=== PATIENT | male | born 1965 | race Caucasian/White ===

== ENCOUNTER 2020-06-27 23:11 | Inpatient (IN) | payer OTHER ==
[~2020-06-27] VITALS: Ht 172.7 cm; Wt 91.2 kg
[2020-06-27] MEDS ORDERED: MAGNESIUM SULFATE 2 GM, MVI, ADULT NO.1 WITH VIT K 10 ML, THIAMINE 100 MG, FOLIC ACID 1... IV ONE ×5 (23:30)
[2020-06-27 23:53] LABS: HEMATOCRIT 48.6 % (41-53); HEMOGLOBIN 16.6 g/dL (13.5-17.5); MEAN CORPUSCULAR HEMOGLOBIN 35.7 pg (26.0-34.0); MEAN CORPUSCULAR HGB CONC 34.2 G/dL (31.0-37.0); MEAN CORPUSCULAR VOLUME 104 fL (80-100); RED BLOOD CELL COUNT(AUTO) 4.65 MIL/uL (4.50-5.90); RED CELL DISTRIBUTION WIDTH 13.4 % (11.5-14.5)
[2020-06-28] VITALS (15 sets, daily range): BP systolic 109–132; BP diastolic 45–84
[2020-06-28 00:08] LABS: ALANINE AMINOTRANSFERASE 122 U/L (12-78); ALKALINE PHOSPHATASE 110 U/L (46-116); ANION GAP 27 mmol/L (8-16); ASPARTATE AMINOTRANSFERASE 271 U/L (15-37); BILIRUBIN,TOTAL 3.4 mg/dL (0.1-1.0); CARBON DIOXIDE 17 mmol/L (22-29); CHLORIDE 92 mmol/L (98-107); CREATININE 3.63 mg/dL (0.60-1.30); GLOMERULAR FILTR. RATE CALC 17 mL/min (>60); GLUCOSE,RANDOM 166 mg/dL (70-110); POTASSIUM 3.7 mmol/L (3.5-5.1); SODIUM SERUM 136 mmol/L (136-145); TOTAL PROTEIN, SERUM 7.6 g/dL (6.4-8.2); UREA NITROGEN, BLOOD 58 mg/dL (7-18)
[2020-06-28 00:10] LABS: PLATELET COUNT (AUTO) 149 K/uL (150-450)
[2020-06-28 00:13] LABS: ACETAMINOPHEN < 2 mcg/mL (10-30); CALCIUM, TOTAL 14.5 mg/dL (8.8-10.5)
[2020-06-28 00:15] LABS: COVID AG,FIA SOURCE NASOPHARYNGEAL
[2020-06-28 00:17] LABS: SALICYLATE 0.3 mg/dL (2.8-20.0)
[2020-06-28 00:20] LABS: BAND NEUTROPHILS % (MANUAL) 25 % (0-5); LYMPHOCYTES % (MANUAL) 8 % (22-44); MONOCYTES % (MANUAL) 7 % (2-9); MYELOCYTES % 1 % (0-0); SEGMENTED NEUTROPHILS % 59 % (40-70)
[2020-06-28 00:21] LABS: PLATELET MORPHOLOGY COMMENT GIANT PLTS PRESENT
[2020-06-28] MEDS ORDERED: SODIUM CHLORIDE 0.9% 1,000 ML ONE (00:34)
[2020-06-28] MEDS ORDERED: NALOXONE HCL 1 MG/ML 2 ML SYG IVP ONE (00:45)
[2020-06-28] MEDS ORDERED: SODIUM CHLORIDE 0.9% 1,000 ML IV ONE ×3 (00:45→03:00)
[2020-06-28 00:50] LABS: LIPASE 7534 U/L (73-393)
[2020-06-28 00:55] LABS: ABG A-A DIFF O2 42.4 mmHg (10-20.0); ABG BASE EXCESS -3.1 mmol/L (-2.0-3.0); ABG CARBOXYHEMOGLOBIN 1.6 % (0.0-1.5); ABG HCO3 22.3 mmol/L (22.0-26.0); ABG METHEMOGLOBIN 0.2 % (0.0-1.5); ABG OXYHEMOGLOBIN 90.3 % (94.0-100.0); ABG PCO2 35 mmHg (35-45); ABG PH 7.406 (7.35-7.450); ABG TOTAL HEMOGLOBIN 15.8 G/dL (12.0-18.0); O2 DEVICE,BLOOD GAS ROOM AIR (ROOM AIR); PO2, ARTERIAL BG 65.4 mmHg (84.0-92.0); SITE, BLOOD GAS LFT RADIAL; SOURCE, BLOOD GAS ARTERIAL; TEMPERATURE, FAHRENHEIT, BG 97.8 FAHREN (96.0-98.6)
[2020-06-28 00:59] LABS: INR 1.1 (0.9-1.1)
[2020-06-28] MEDS ORDERED: LORazepam 2 MG/ML VIAL IVP ONE ×2 (01:00→05:30)
[2020-06-28 01:22] LABS: % IRON SATURATION 52.3 % (30-44)
[2020-06-28 01:23] LABS: ACETONE,BLOOD NEGATIVE (NEGATIVE); B-TYPE NATRIURETIC PEPTIDE 131 pg/mL (0-100)
[2020-06-28 01:41] LABS: LACTIC ACID 6.2 mmol/L (0.4-2.0)
[2020-06-28 01:53] LABS: CREATINE KINASE, TOTAL ONLY 169 U/L (39-308); LACTATE DEHYDROGENASE 556 U/L (85-227)
[2020-06-28 02:45] LABS: APPEARANCE,URINE TURBID (CLEAR); GLUCOSE, URINE (UA) 100 mg/dL (NEGATIVE); KETONES,URINE 15 mg/dL (NEGATIVE); LEUKOCYTE ESTERASE ,URINE SMALL (NEGATIVE); NITRATE,URINE NEGATIVE (NEGATIVE); OCCULT BLOOD,URINE LARGE (NEGATIVE); PH,URINE 5.5 (5.0-8.0); PROTEIN,URINE SEE CONFIRM (NEGATIVE)
[2020-06-28] MEDS ORDERED: ONDANSETRON HCL 4 MG/2 ML VIAL IVP PRN ×2 (02:45→06:00)
[2020-06-28] MEDS ORDERED: ACETAMINOPHEN 325 MG TABLET PO PRN ×2 (02:45→06:00)
[2020-06-28] MEDS ORDERED: 0.9% SODIUM CHLORIDE 10 ML SYRINGE IVP PRN (02:45)
[2020-06-28 02:47] LABS: BILIRUBIN,URINE PRELIM. POSITIVE (NEGATIVE)
[2020-06-28 02:51] LABS: AMPHET/METH SCREEN,URINE NEGATIVE (NEGATIVE); BARBITURATE SCREEN, URINE NEGATIVE (NEGATIVE); BENZODIAZEPINES SCREEN,URINE NEGATIVE (NEGATIVE); CANNABINOID SCREEN,URINE NEGATIVE (NEGATIVE); COCAINE SCREEN,URINE NEGATIVE (NEGATIVE); METHADONE SCREEN, URINE NEGATIVE (NEGATIVE); OPIATE SCREEN,URINE NEGATIVE (NEGATIVE)
[2020-06-28 02:52] LABS: RBC,URINE 26-50 /HPF (0-2)
[2020-06-28 02:53] LABS: BACTERIA,URINE Few /HPF (None Seen); SQUAMOUS EPITHELIAL CELL,UR Rare /LPF (None Seen)
[2020-06-28 02:54] LABS: SULFOSALICYLIC ACID,URINE 3+ (Negative)
[2020-06-28 02:55] LABS: PHENCYCLIDINE SCREEN,URINE NEGATIVE (NEGATIVE)
[2020-06-28] MEDS ORDERED: HYDROCODONE/ACETAMINOPHEN 5-325 MG TABLET PO PRN (06:00)
[2020-06-28] MEDS ORDERED: MORPHINE SULFATE 2 MG/ML SYRINGE IVP PRN (06:00)
[2020-06-28] MEDS ORDERED: SODIUM BICARBONATE 50 MEQ in SODIUM CHLORIDE 0.9% 1,000 ML IV ONE (06:00)
[2020-06-28] MEDS ORDERED: MAGNESIUM HYDROXIDE SUSPENSION 30 ML UDCUP PO PRN (06:00)
[2020-06-28] MEDS ORDERED: BISACODYL 10 MG RECTAL RECTAL SUPPOSITORY PR PRN (06:00)
[2020-06-28] MEDS ORDERED: ZOLPIDEM TARTRATE 5 MG TABLET PO PRN (06:00)
[2020-06-28 07:47] LABS: LACTIC ACID 1.8 mmol/L (0.4-2.0)
[2020-06-28 07:59] LABS: CALCIUM, TOTAL 11.4 mg/dL (8.8-10.5); CREATININE 2.79 mg/dL (0.60-1.30); POTASSIUM 3.7 mmol/L (3.5-5.1)
[2020-06-28] MEDS: HEPARIN SODIUM,PORCINE 5,000 UNITS/ML VIAL SQ SCH ×2 (08:00→16:13)
[2020-06-28] MEDS: PANTOPRAZOLE SODIUM 40 MG DR TABLET PO SCH (09:00)
[2020-06-28] MEDS: DOCUSATE SODIUM 100 MG CAPSULE PO SCH ×2 (09:00→20:56)
[2020-06-28 10:11] LABS: GLUCOSE,POINT OF CARE 184 MG/DL (70-110)
[2020-06-28] MEDS ORDERED: VANCOMYCIN HCL 1 GM/D5% WATER 200 ML IV ONE (11:30)
[2020-06-28] MEDS ORDERED: AZTREONAM 1 GM in DEXTROSE 5%-WATER 50 ML IV ONE (11:30)
[2020-06-28] MEDS: SODIUM CHLORIDE 0.9% 1,000 ML IV SCH ×2 (11:30→20:56)
[2020-06-28] MEDS: [UNRECOGNIZED DRUG - REMARK] IV SCH ×8 (12:29→22:12)
[2020-06-28 18:43] LABS: LACTIC ACID 2.2 mmol/L (0.4-2.0)
[2020-06-28] MEDS ORDERED: ACETAMINOPHEN 650 MG RECTAL SUPPOSITORY PR PRN (22:00)
[2020-06-29] VITALS: BP 117/71
[2020-06-29] MEDS: HEPARIN SODIUM,PORCINE 5,000 UNITS/ML VIAL SQ SCH ×3 (00:25→15:07)
[2020-06-29] MEDS: LORazepam 2 MG/ML VIAL IM PRN ×2 (00:54→07:56)
[2020-06-29 01:07] LABS: CREATININE,URINE RANDOM 257.3 mg/dL (30.0-125.0); UREA NITROGEN,URINE RANDOM 1040 mg/dL (350-1000)
[2020-06-29 01:14] LABS: SODIUM,URINE RANDOM < 5 mmol/l (20-110)
[2020-06-29] MEDS ORDERED: INFLUENZA VIRUS VACCINE QVS 2020-21 (6MO+)/PF 60 MCG/0.5 ML SYRINGE IM ONE (02:45)
[2020-06-29] MEDS: SODIUM CHLORIDE 0.9% 1,000 ML IV SCH ×3 (03:48→15:08)
[2020-06-29 04:00] VITALS: BP 116/72
[2020-06-29 05:26] LABS: HEMATOCRIT 39.7 % (41-53); HEMOGLOBIN 13.9 g/dL (13.5-17.5); MEAN CORPUSCULAR HEMOGLOBIN 36.5 pg (26.0-34.0); MEAN CORPUSCULAR HGB CONC 34.9 G/dL (31.0-37.0); MEAN CORPUSCULAR VOLUME 104 fL (80-100); PLATELET COUNT (AUTO) 127 K/uL (150-450)
[2020-06-29 05:41] LABS: CALCIUM, TOTAL 9.1 mg/dL (8.8-10.5); CREATININE 2.3 mg/dL (0.60-1.30); POTASSIUM 3.2 mmol/L (3.5-5.1)
[2020-06-29 08:00] VITALS: BP 111/69
[2020-06-29 08:06] LABS: IGM (IMMUNOFIXATION) 35 mg/dL (20-172)
[2020-06-29] MEDS ORDERED: RINGERS SOLUTION,LACTATED 500 ML IV ONE (08:30)
[2020-06-29] MEDS: [UNRECOGNIZED DRUG - REMARK] IV SCH ×8 (08:53→17:42)
[2020-06-29] MEDS: DOCUSATE SODIUM 100 MG CAPSULE PO SCH (09:00)
[2020-06-29] MEDS: PANTOPRAZOLE SODIUM 40 MG DR TABLET PO SCH (09:00)
[2020-06-29] MEDS: POTASSIUM CHL 10 MEQ/WATER 50 ML IV SCH ×4 (09:02→11:32)
[2020-06-29 10:26] LABS: MAGNESIUM 2.4 mg/dL (1.80-2.40); PHOSPHORUS 5.1 mg/dL (2.5-4.9)
[2020-06-29] MEDS: CLINDAMYCIN 600 MG/D5% WATER 50 ML IV SCH ×2 (10:37→17:42)
[2020-06-29 11:08] LABS: BAND NEUTROPHILS % (MANUAL) 23 % (0-5); CORRECTED WHITE BLOOD COUNT 5.3 K/uL (4.5-11.0); EOSINOPHILS % (MANUAL) 1 % (1-6); LYMPHOCYTES % (MANUAL) 13 % (22-44); METAMYELOCYTES % 3 % (0-0); MONOCYTES % (MANUAL) 22 % (2-9); MYELOCYTES % 1 % (0-0); SEGMENTED NEUTROPHILS % 37 % (40-70)
[2020-06-29 12:00] VITALS: BP 162/70
[2020-06-29] MEDS ORDERED: LORazepam 2 MG/ML VIAL IVP PRN (13:45)
[2020-06-29 16:00] VITALS: BP 102/55
[2020-06-29] MEDS ORDERED: ChlordiazePOXIDE HCL 25 MG CAPSULE PO SCH (16:00)
[2020-06-30 14:13] LABS: ALBUMIN URINE (ELP) 9.1 %
== END 2020-06-29 20:25 | disposition short-term general hospital (02) | DRG 91 ==
LOC: EMS 23:11 → ICUN 06-28 08:19 → UNDOADMIN 06-28 08:19 → ICU 06-28 08:30
PROVIDERS: ADMIT Internal Medicine; ATTEND Internal Medicine
DX: G92 Toxic encephalopathy (principal); R65.11 Systemic inflammatory response syndrome (SIRS) of non-infectious origin with acute organ dysfunction; K85.20 Alcohol induced acute pancreatitis without necrosis or infection; R57.1 Hypovolemic shock; F10.239 Alcohol dependence with withdrawal, unspecified; N17.9 Acute kidney failure, unspecified; E87.2 Acidosis; D69.6 Thrombocytopenia, unspecified; E83.41 Hypermagnesemia; E83.52 Hypercalcemia; Z88.0 Allergy status to penicillin; I10 Essential (primary) hypertension; Y90.9 Presence of alcohol in blood, level not specified; F10.229 Alcohol dependence with intoxication, unspecified; K76.0 Fatty (change of) liver, not elsewhere classified; K70.10 Alcoholic hepatitis without ascites; Z20.828 Contact with and (suspected) exposure to other viral communicable diseases
CPT/HCPCS: 36600; 51702; 70450; 74176; 76770; 82306; 82340; 82570; 82784; 82805; 83540; 83550; 83605; 83615; 83735; 83970; 84100; 84155; 84156; 84165; 84166; 84300; 84540; 86334; 87040; 87081; 87426; 93005; 99291; G0378; G0480; G0481; J1644; J2060; J3370; J3411; J3475; J3480; J3490; J7030; J7060; J7120; 36415-L1; 36415-TC; 71045-TC